=== PATIENT | female | born 1970 | race Caucasian/White ===

== ENCOUNTER 2018-11-07 21:33 | Inpatient (IN) | payer OTHER | END 2018-11-11 16:36 | disposition home or self-care (01) | LOC: JERBED 11-08 01:13 → J5S 11-08 03:16 → JER 21:33 ==

== ENCOUNTER → 2022-09-02 | Day surgery (SDC) | payer OTHER | END | disposition home or self-care (01) | LOC: FMAMMOTONE 09:10 | PROVIDERS: ATTEND Internal Medicine | PROC: 0HBU3ZX Excision of Left Breast, Percutaneous Approach, Diagnostic (ICD-10-PCS; principal; 2022-09-02) | DX: N64.89 Other specified disorders of breast (principal); R92.0 Mammographic microcalcification found on diagnostic imaging of breast | CPT/HCPCS: 19081; 76098-TC-FY; 87899; 88305-TC; A4648 ==

== ENCOUNTER 2023-11-23 09:10 | Inpatient (IN) | payer OTHER ==
[2023-11-23] MEDS: LACTATED RINGERS SOLUTION 1,000 ML IV STA ×2 (09:45→12:19)
[2023-11-23] MEDS: ACETAMINOPHEN 1000 MG/100 ML BAG IVPB ONE (09:45)
[2023-11-23] MEDS ORDERED: morphine SULFATE 4 MG/ML VIAL ONE ×2 (10:07→14:53)
[2023-11-23] MEDS ORDERED: ACETAMINOPHEN INJECTION 100 ML IVPB ONE (10:07)
[2023-11-23 10:12] LABS: BASO % 0.2 % (0-2.0); EOS % 0.1 % (0-4.5); HEMATOCRIT 48.9 % (32.4-45.2); HEMOGLOBIN 16.5 GM/dL (10.7-15.3); LYMPH % 4.5 % (8-40); MCH 29.9 pg (25.7-33.7); MCHC 33.7 g/dl (32.0-36.0); MEAN CELL VOLUME 88.9 fl (80-96); MEAN PLT VOLUME 8.5 fl (7.5-11.1); MONO % 6.5 % (3.8-10.2); NEUT % 88.7 % (42.8-82.8); PLATELET COUNT 270 10^3/uL (134-434); RDW 14.1 % (11.6-15.6); WHITE BLOOD COUNT 17.6 K/mm3 (4.0-10.0)
[2023-11-23 10:31] LABS: POTASSIUM 4.4 mmol/L (3.5-5.1)
[2023-11-23 10:33] LABS: ALBUMIN 3.4 g/dl (3.4-5.0); CALCIUM 8.7 mg/dL (8.5-10.1)
[2023-11-23 10:34] LABS: BLOOD UREA NITROGEN 19.8 mg/dL (7-18)
[2023-11-23 10:36] LABS: CREATININE 0.9 mg/dL (0.55-1.3)
[2023-11-23 10:38] LABS: TOT PROT 6.5 g/dl (6.4-8.2)
[2023-11-23] MEDS: morphine CARPU-JECT 4 MG/1 ML DISP.SYRIN IVPUSH ONE ×2 (10:48→14:58)
[2023-11-23 11:06] LABS: INR 1.13 (0.83-1.09); PROTHROMBIN TIME (PATIENT) 12.7 SEC (9.7-13.0)
[2023-11-23 11:09] LABS: ACTIVATED PTT 46.6 SECONDS (25.2-36.5)
[2023-11-23] MEDS ORDERED: PIPERACILLIN/TAZOB 4.5 GM 4.5 GM/100 ML BAG IVPB ONE (14:51)
[2023-11-23] MEDS: PIPERACILLIN/TAZOB 4.5 GM 4.5 GM in DEXTROSE 5%-WATER 100 ML IVPB ONE (14:58)
[2023-11-23] MEDS: morphine SULFATE 4 MG/ML VIAL IVPUSH PRN (18:27)
[2023-11-23] MEDS: ACETAMINOPHEN 1000 MG/100 ML BAG IVPB PRN (20:07)
[2023-11-23] MEDS: D5-1/2NS+10 MEQ KCL - 10 MEQ/1,000 ML INFUS.BAG IV SCH (21:39)
[2023-11-23] MEDS: PIPERACILLIN/TAZOB 4.5 GM 4.5 GM in DEXTROSE 5%-WATER 100 ML IVPB SCH (21:40)
[2023-11-24] MEDS: LEVOTHYROXINE 112 MCG, LEVOTHYROXINE 25 MCG PO SCH (06:19)
[2023-11-24 08:34] LABS: BASO % 0.3 % (0-2.0); EOS % 0.1 % (0-4.5); HEMOGLOBIN 14.9 GM/dL (10.7-15.3); LYMPH % 4.2 % (8-40); MCH 29.6 pg (25.7-33.7); MCHC 33.1 g/dl (32.0-36.0); MEAN CELL VOLUME 89.6 fl (80-96); MEAN PLT VOLUME 9.2 fl (7.5-11.1); MONO % 6.6 % (3.8-10.2); NEUT % 88.8 % (42.8-82.8); RBC 5.02 M/mm3 (3.60-5.2); RDW 13.9 % (11.6-15.6); WHITE BLOOD COUNT 19.3 K/mm3 (4.0-10.0)
[2023-11-24 08:50] LABS: POTASSIUM 3.9 mmol/L (3.5-5.1)
[2023-11-24 08:59] LABS: PLATELET COUNT 209 10^3/uL (134-434)
[2023-11-24 09:08] LABS: CALCIUM 8.6 mg/dL (8.5-10.1)
[2023-11-24 09:09] LABS: ALBUMIN 3.1 g/dl (3.4-5.0); BLOOD UREA NITROGEN 11.9 mg/dL (7-18)
[2023-11-24 09:12] LABS: CREATININE 0.6 mg/dL (0.55-1.3); PHOSPHOROUS 1.8 mg/dL (2.5-4.9)
[2023-11-24 09:13] LABS: BILIRUBIN,TOTAL 1.6 mg/dL (0.2-1); TOT PROT 5.8 g/dl (6.4-8.2)
[2023-11-24] MEDS: HYDROmorphone HCl 2 MG/ML VIAL IVPB PRN (12:50)
[2023-11-24] MEDS: VANCOMYCIN ORAL SOLUTION 125 MG/2.5 ML PO SCH (17:55)
[2023-11-24 18:08] LABS: EPI CELLS 10 /uL (0-25.1); HYALINE CASTS 0 /uL (0-3.1); URINE APPEARANCE CLEAR; URINE BACTERIA 190 /uL (0-1359); URINE BILIRUBIN NEGATIVE (NEGATIVE); URINE COLOR YELLOW; URINE GLUCOSE (UA) NEGATIVE (NEGATIVE); URINE KETONE NEGATIVE (NEGATIVE); URINE LEUK ESTERASE 2+ (NEGATIVE); URINE NITRITE NEGATIVE (NEGATIVE); URINE PROTEIN 1+ (NEGATIVE); URINE RBC 28 /uL (0-23.9); URINE WBC 236 /uL (0-25.8)
[2023-11-24] MEDS: PIPERACILLIN/TAZOB 4.5 GM 4.5 GM in DEXTROSE 5%-WATER 100 ML IVPB SCH ×2 (18:14→19:08)
[2023-11-24] MEDS: metroNIDAZOLE 250 MG TABLET PO SCH (18:14)
[2023-11-24] MEDS: ALBUTEROL SO4 0.083% IH SOL 2.5 MG/3 ML VIAL.NEB. NEB PRN (22:13)
[2023-11-24] MEDS: BUDESONIDE/FORMETEROL FUMARATE 160/4.5 mcg INHALER IH SCH (22:40)
[2023-11-25] MEDS ORDERED: PATIENT'S OWN MEDICATION (NON-FORMULARY) (Enalapril Maleate [Vasotec] 20 MG Tablet) PO PRN (10:20)
[2023-11-25] MEDS: ENALAPRIL MALEATE 10 MG TABLET PO SCH (11:38)
[2023-11-25 12:13] LABS: BASO % 0.2 % (0-2.0); EOS % 0.2 % (0-4.5); HEMATOCRIT 41.9 % (32.4-45.2); HEMOGLOBIN 14.2 GM/dL (10.7-15.3); LYMPH % 6.4 % (8-40); MCH 29.8 pg (25.7-33.7); MCHC 33.8 g/dl (32.0-36.0); MEAN CELL VOLUME 88.2 fl (80-96); MONO % 7.4 % (3.8-10.2); NEUT % 85.8 % (42.8-82.8); PLATELET COUNT 197 10^3/uL (134-434); RBC 4.76 M/mm3 (3.60-5.2); WHITE BLOOD COUNT 14.4 K/mm3 (4.0-10.0)
[2023-11-25 12:22] LABS: POTASSIUM 3.5 mmol/L (3.5-5.1)
[2023-11-25 12:23] LABS: CALCIUM 8.2 mg/dL (8.5-10.1)
[2023-11-25 12:24] LABS: BLOOD UREA NITROGEN 9.6 mg/dL (7-18)
[2023-11-25 12:27] LABS: CREATININE 0.5 mg/dL (0.55-1.3)
[2023-11-25] MEDS: ACETAMINOPHEN 1000 MG/100 ML BAG IVPB PRN (12:56)
[2023-11-25] MEDS: D5-1/2NS+10 MEQ KCL - 10 MEQ/1,000 ML INFUS.BAG IV SCH (16:39)
[2023-11-25] MEDS: GABAPENTIN 300 MG CAPSULE PO SCH (21:54)
[2023-11-25] MEDS: LIDOCAINE PATCH REMOVAL MC SCH (21:58)
[2023-11-26 08:58] LABS: BASO % 0.3 % (0-2.0); EOS % 0.5 % (0-4.5); HEMOGLOBIN 14.5 GM/dL (10.7-15.3); LYMPH % 9.1 % (8-40); MCH 30.6 pg (25.7-33.7); MCHC 34.5 g/dl (32.0-36.0); MEAN CELL VOLUME 88.5 fl (80-96); MONO % 8.4 % (3.8-10.2); NEUT % 81.7 % (42.8-82.8); PLATELET COUNT 226 10^3/uL (134-434); RBC 4.75 M/mm3 (3.60-5.2); RDW 13.8 % (11.6-15.6); WHITE BLOOD COUNT 10.9 K/mm3 (4.0-10.0)
[2023-11-26 09:11] LABS: POTASSIUM 3.5 mmol/L (3.5-5.1)
[2023-11-26 09:26] LABS: CALCIUM 8.7 mg/dL (8.5-10.1)
[2023-11-26 09:28] LABS: BLOOD UREA NITROGEN 6.7 mg/dL (7-18)
[2023-11-26 09:32] LABS: BILIRUBIN,TOTAL 0.8 mg/dL (0.2-1); CREATININE 0.7 mg/dL (0.55-1.3); TOT PROT 5.7 g/dl (6.4-8.2)
[2023-11-26] MEDS: DULoxetine HCL 30 MG CAPSULE.DR PO SCH (09:35)
[2023-11-26] MEDS: LIDOCAINE 5% TOPICAL PATCH TP SCH (09:36)
[2023-11-27] MEDS ORDERED: INSULIN ASPART SLIDING SCALE (NOVOLOG) 1 VIAL SQ ONE (07:03)
[2023-11-27 08:11] LABS: BASO % 0.3 % (0-2.0); EOS % 1.8 % (0-4.5); HEMATOCRIT 37.1 % (32.4-45.2); HEMOGLOBIN 12.5 GM/dL (10.7-15.3); LYMPH % 17.1 % (8-40); MCH 29.8 pg (25.7-33.7); MCHC 33.6 g/dl (32.0-36.0); MEAN CELL VOLUME 88.9 fl (80-96); MEAN PLT VOLUME 8.8 fl (7.5-11.1); MONO % 9.7 % (3.8-10.2); NEUT % 71.1 % (42.8-82.8); PLATELET COUNT 224 10^3/uL (134-434); RBC 4.17 M/mm3 (3.60-5.2); RDW 14.1 % (11.6-15.6); WHITE BLOOD COUNT 8.3 K/mm3 (4.0-10.0)
[2023-11-27 08:12] LABS: POTASSIUM 3.1 mmol/L (3.5-5.1)
[2023-11-27 08:25] LABS: CALCIUM 8.1 mg/dL (8.5-10.1)
[2023-11-27 08:26] LABS: ALBUMIN 2.7 g/dl (3.4-5.0); BLOOD UREA NITROGEN 7.4 mg/dL (7-18)
[2023-11-27 08:29] LABS: CREATININE 0.6 mg/dL (0.55-1.3)
[2023-11-27 08:30] LABS: BILIRUBIN,TOTAL 0.7 mg/dL (0.2-1); TOT PROT 5.3 g/dl (6.4-8.2)
[2023-11-28 11:03] LABS: BASO % 0.5 % (0-2.0); EOS % 2.4 % (0-4.5); HEMATOCRIT 36.8 % (32.4-45.2); HEMOGLOBIN 12.5 GM/dL (10.7-15.3); LYMPH % 13.1 % (8-40); MCH 30.2 pg (25.7-33.7); MCHC 33.9 g/dl (32.0-36.0); MEAN PLT VOLUME 8.1 fl (7.5-11.1); MONO % 8.1 % (3.8-10.2); NEUT % 75.9 % (42.8-82.8); PLATELET COUNT 244 10^3/uL (134-434); RBC 4.14 M/mm3 (3.60-5.2); RDW 14.2 % (11.6-15.6); WHITE BLOOD COUNT 8.5 K/mm3 (4.0-10.0)
[2023-11-28 11:25] LABS: POTASSIUM 3.1 mmol/L (3.5-5.1)
[2023-11-28 11:28] LABS: BLOOD UREA NITROGEN 3.8 mg/dL (7-18); CALCIUM 8.5 mg/dL (8.5-10.1); MAGNESIUM 1.9 mg/dL (1.8-2.4)
[2023-11-28 11:32] LABS: CREATININE 0.7 mg/dL (0.55-1.3); PHOSPHOROUS 2.6 mg/dL (2.5-4.9)
[2023-11-28] MEDS: NICOTINE 14 MG/24 HOURS TOPICAL PATCH TD SCH (13:32)
[2023-11-28] MEDS: HYDROmorphone HCl 2 MG/ML VIAL IVPB PRN (23:12)
[2023-11-29 07:53] LABS: INR 1.13 (0.83-1.09)
[2023-11-29 07:59] LABS: BASO % 0.4 % (0-2.0); EOS % 2.8 % (0-4.5); HEMATOCRIT 35.1 % (32.4-45.2); LYMPH % 12.6 % (8-40); MCH 30.7 pg (25.7-33.7); MCHC 34.2 g/dl (32.0-36.0); MEAN CELL VOLUME 89.8 fl (80-96); MEAN PLT VOLUME 8.2 fl (7.5-11.1); MONO % 9.2 % (3.8-10.2); PLATELET COUNT 242 10^3/uL (134-434); RBC 3.91 M/mm3 (3.60-5.2); WHITE BLOOD COUNT 8.3 K/mm3 (4.0-10.0)
[2023-11-29 08:06] LABS: CHLORIDE 109 mmol/L (98-107); POTASSIUM 3.5 mmol/L (3.5-5.1); SODIUM 143 mmol/L (136-145)
[2023-11-29 08:17] LABS: GLUCOSE,RANDOM 138 mg/dL (74-106)
[2023-11-29 08:19] LABS: CALCIUM 8.3 mg/dL (8.5-10.1)
[2023-11-29 08:20] LABS: ANION GAP 6 mmol/L (4-13); CO2 28 mmol/L (21-32); CREATININE 0.6 mg/dL (0.55-1.3)
[2023-11-29 08:26] LABS: BLOOD UREA NITROGEN 2.5 mg/dL (7-18)
[2023-11-29] MEDS ORDERED: ALBUTEROL SO4 HFA INHALER IH ONE (10:57)
[2023-11-30] MEDS: PANTOPRAZOLE 40 MG TABLET PO SCH (11:07)
[2023-11-30] MEDS: LACTOBACILLUS ACIDOPHILUS 1 TABLET PO SCH (11:07)
[2023-11-30] MEDS: ASPIRIN COATED 81 MG TABLET.EC PO SCH (11:07)
[2023-11-30] MEDS: POLYETHYLENE GLYCOL (HEALTHYLAX) 3350 17 GM PACKET PO SCH (11:08)
[2023-12-01] MEDS: ALBUTEROL SO4 2.5/IPRATROPIUM 0.5 INH SOL 3 ML VIAL.NEB. NEB SCH (12:40)
[2023-12-01 13:50] VITALS: BMI 28.1
[2023-12-01] MEDS: HYDROmorphone HCl 2 MG/ML VIAL IVPB PRN (23:40)
[2023-12-02 04:40] VITALS: RESP 18
[2023-12-02 23:33] VITALS: BP 151/91; PULSE 96; TEMP 98.3
== END 2023-12-03 03:30 | DRG 246 ==
LOC: JER 09:10 → JERBED 13:50 → J5S 15:25 → J6S 11-24 19:56
PROVIDERS: ADMIT Internal Medicine; ATTEND Internal Medicine
PROC: 0DBM8ZX Excision of Descending Colon, Via Natural or Artificial Opening Endoscopic, Diagnostic (ICD-10-PCS; 2023-11-29)
PROC: 0DBP8ZX Excision of Rectum, Via Natural or Artificial Opening Endoscopic, Diagnostic (ICD-10-PCS; principal; 2023-11-29 12:00)
DX: K55.9 Vascular disorder of intestine, unspecified (principal); R18.8 Other ascites; J44.9 Chronic obstructive pulmonary disease, unspecified; E05.90 Thyrotoxicosis, unspecified without thyrotoxic crisis or storm; R50.9 Fever, unspecified; D25.9 Leiomyoma of uterus, unspecified; E11.51 Type 2 diabetes mellitus with diabetic peripheral angiopathy without gangrene; K62.1 Rectal polyp; F17.210 Nicotine dependence, cigarettes, uncomplicated
CPT/HCPCS: 0241U-QW; 36415; 71045-TC-FY; 74177-TC; 80048; 80053; 81003; 82962; 83605; 83690; 83735; 84100; 85025; 85610; 85730; 86140; 86850; 86900; 86901; 87040; 87045; 87046; 87086; 87205; 87209; 87324; 87449; 87493; 88305-TC; 93005; 93010; 94640; 97116-GP; 97162-GP; 99285-25; J0131; Q9967

== ENCOUNTER 2024-01-14 00:58 | Inpatient (IN) | payer OTHER ==
[2024-01-14] MEDS ORDERED: RAPID SEQUENCE INTUBATION KIT NR ONE (01:06)
[2024-01-14] MEDS ORDERED: ALBUTEROL SO4 2.5/IPRATROPIUM 0.5 INH SOL 3 ML VIAL.NEB. NEB ONE (01:19)
[2024-01-14 01:55] LABS: BASO % 0.5 % (0-2.0); EOS % 4.7 % (0-4.5); HEMATOCRIT 38.5 % (32.4-45.2); HEMOGLOBIN 12.7 GM/dL (10.7-15.3); LYMPH % 17.9 % (8-40); MCH 30.1 pg (25.7-33.7); MEAN CELL VOLUME 91.2 fl (80-96); MEAN PLT VOLUME 8.9 fl (7.5-11.1); MONO % 7.3 % (3.8-10.2); NEUT % 69.6 % (42.8-82.8); PLATELET COUNT 246 10^3/uL (134-434); RBC 4.22 M/mm3 (3.60-5.2)
[2024-01-14] MEDS: ROCURONIUM BROMIDE 50 MG/5 ML VIAL IV ONE (02:09)
[2024-01-14] MEDS: ETOMIDATE 40 MG/20 ML VIAL IVPUSH ONE (02:09)
[2024-01-14] MEDS: PROPOFOL 1,000,000 MCG/100 ML VIAL IVPB SCH (02:33)
[2024-01-14] MEDS ORDERED: methylPREDNISolone NA SUCC 125 MG/2 ML VIAL ONE (02:34)
[2024-01-14] MEDS: methylPREDNISolone NA SUCC 125 MG/2 ML VIAL IVPUSH ONE (02:41)
[2024-01-14 02:44] LABS: PH,URINE 5.5 (5.0-8.0); URINE APPEARANCE CLEAR; URINE BILIRUBIN NEGATIVE (NEGATIVE); URINE COLOR YELLOW; URINE GLUCOSE (UA) NEGATIVE (NEGATIVE); URINE KETONE NEGATIVE (NEGATIVE); URINE LEUK ESTERASE NEGATIVE (NEGATIVE); URINE NITRITE NEGATIVE (NEGATIVE); URINE PROTEIN NEGATIVE (NEGATIVE); URINE UROBILINOGEN 0.2 mg/dL (0.2-1.0)
[2024-01-14 02:48] LABS: VENOUS BASE EXCESS -5.7 mmol/L (-2-2); VENOUS O2 SATURATION 52.1 % (70-80)
[2024-01-14 02:49] LABS: VENOUS PH 7.178 (7.310-7.410)
[2024-01-14] MEDS: MIDAZOLAM IN 0.9 % SOD.CHLORID 100 MG/100 ML PLAST..BAG IVPB SCH (03:12)
[2024-01-14] MEDS: ALBUTEROL SO4 2.5/IPRATROPIUM 0.5 INH SOL 3 ML VIAL.NEB. NEB ONE (03:13)
[2024-01-14] MEDS ORDERED: MAGNESIUM SULFATE IN WATER 2 GM/50 ML IVPB IVPB ONE (03:13)
[2024-01-14 03:29] LABS: CHLORIDE 108 mmol/L (98-107); POTASSIUM 4.8 mmol/L (3.5-5.1); SODIUM 142 mmol/L (136-145)
[2024-01-14 03:31] LABS: ALBUMIN 3.3 g/dl (3.4-5.0); ANION GAP 7 mmol/L (4-13); BLOOD UREA NITROGEN 14.5 mg/dL (7-18); CALCIUM 8.9 mg/dL (8.5-10.1); CO2 26 mmol/L (21-32); GLUCOSE,RANDOM 124 mg/dL (74-106); MAGNESIUM 1.4 mg/dL (1.8-2.4)
[2024-01-14] MEDS: MAGNESIUM SULF 50% (8.12 MEQ/2 ML-1 GM VIAL) IVPB ONE (03:32)
[2024-01-14 03:33] LABS: CREATININE 0.7 mg/dL (0.55-1.3); PHOSPHOROUS 3.5 mg/dL (2.5-4.9); SGOT/AST 28 U/L (15-37); SGPT/ALT 32 U/L (13-61)
[2024-01-14 03:34] LABS: ACTIVATED PTT 42.6 SECONDS (25.2-36.5); INR 0.98 (0.83-1.09); PROTHROMBIN TIME (PATIENT) 11.3 SEC (9.7-13.0)
[2024-01-14 03:36] LABS: BILIRUBIN,TOTAL 0.2 mg/dL (0.2-1); TOT PROT 6.1 g/dl (6.4-8.2)
[2024-01-14 03:37] LABS: ALK PHOS 55 U/L (45-117)
[2024-01-14 03:55] LABS: METHADONE, UR NEGATIVE (NEGATIVE)
[2024-01-14 03:56] LABS: PHENCYCLIDINE,URINE NEGATIVE (NEGATIVE); URINE BARBITURATES NEGATIVE (NEGATIVE)
[2024-01-14 03:57] LABS: COCAINE, UR POSITIVE (NEGATIVE); OPIATES, URI POSITIVE (NEGATIVE); URINE AMPHETAMINES POSITIVE (NEGATIVE); URINE BENZODIAZEPINES POSITIVE (NEGATIVE)
[2024-01-14 04:18] LABS: ARTERIAL BLOOD GAS PO2 171.6 mmHg (80-100); ARTERIAL BLOOD GAS pH 7.306 (7.350-7.450)
[2024-01-14] MEDS: INSULIN ASPART SLIDING SCALE (NOVOLOG) 1 VIAL SQ SCH ×2 (04:39→17:43)
[2024-01-14] MEDS: FENTANYL NS IVPB 500 MCG/100 ML BAG IVPB SCH (05:00)
[2024-01-14] MEDS: CEFTRIAXONE 1 GM in DEXTROSE 5%-WATER - 50 ML IVPB SCH (05:40)
[2024-01-14] MEDS: AZITHROMYCIN IVPB 500 MG/250 ML BAG IVPB SCH (06:05)
[2024-01-14] MEDS ORDERED: methylPREDNISolone NA SUCC 40 MG/1 ML VIAL IVPUSH SCH (09:00)
[2024-01-14] MEDS: methylPREDNISolone NA SUCC 40 MG/1 ML VIAL IVPUSH SCH (09:25)
[2024-01-14] MEDS: PANTOPRAZOLE SODIUM 40 MG VIAL IVPUSH SCH (09:26)
[2024-01-14] MEDS: MUPIROCIN 2% TOPICAL OINTMENT FOR DECOLONIZATION NS SCH (09:27)
[2024-01-14] MEDS: ALBUTEROL SO4 2.5/IPRATROPIUM 0.5 INH SOL 3 ML VIAL.NEB. NEB PRN (20:54)
[2024-01-14] MEDS: ACETAMINOPHEN 1000 MG/100 ML BAG IVPB PRN (22:03)
[2024-01-14] MEDS: CHLORHEXIDINE GLUCONATE 4% CLEANSER FOR DECOLONIZATION TP SCH (22:05)
[2024-01-14 23:00] LABS: ALLENS TEST POSITIVE; ARTERIAL BLOOD GAS BASE EXCESS 1.8 mmol/L (-2-2); ARTERIAL BLOOD GAS PO2 58.3 mmHg (80-100); ARTERIAL BLOOD GAS pH 7.429 (7.350-7.450)
[2024-01-14 23:01] LABS: PT'S TEMP 100.5; VENT MODE A/C; VENT RATE 18
[2024-01-15 06:13] LABS: ARTERIAL BLD GAS O2 SATURATION 91.6 % (95-98); ARTERIAL BLOOD GAS BASE EXCESS 2.3 mmol/L (-2-2); ARTERIAL BLOOD GAS PO2 62.6 mmHg (80-100)
[2024-01-15 06:14] LABS: ALLENS TEST POSITIVE
[2024-01-15 06:15] LABS: VENT MODE A/C
[2024-01-15 06:16] LABS: VENT RATE 18
[2024-01-15] MEDS: MIDAZOLAM IN 0.9 % SOD.CHLORID 100 MG/100 ML PLAST..BAG IVPB SCH (06:45)
[2024-01-15 07:26] LABS: HEMATOCRIT 35.4 % (32.4-45.2); HEMOGLOBIN 11.8 GM/dL (10.7-15.3); MCH 30.4 pg (25.7-33.7); MCHC 33.4 g/dl (32.0-36.0); MEAN CELL VOLUME 90.7 fl (80-96); MEAN PLT VOLUME 9.2 fl (7.5-11.1); PLATELET COUNT 246 10^3/uL (134-434); RDW 14.7 % (11.6-15.6)
[2024-01-15 07:32] LABS: INR 0.95 (0.83-1.09); PROTHROMBIN TIME (PATIENT) 10.8 SEC (9.7-13.0)
[2024-01-15 07:34] LABS: ACTIVATED PTT 32.4 SECONDS (25.2-36.5)
[2024-01-15 07:43] LABS: POTASSIUM 4.9 mmol/L (3.5-5.1)
[2024-01-15 07:51] LABS: CALCIUM 8.5 mg/dL (8.5-10.1)
[2024-01-15 07:52] LABS: ALBUMIN 2.8 g/dl (3.4-5.0); MAGNESIUM 1.8 mg/dL (1.8-2.4); PHOSPHOROUS 4.3 mg/dL (2.5-4.9)
[2024-01-15 07:53] LABS: BILIRUBIN,TOTAL 0.4 mg/dL (0.2-1); TOT PROT 5.3 g/dl (6.4-8.2)
[2024-01-15 07:55] LABS: CREATININE 0.6 mg/dL (0.55-1.3)
[2024-01-15 09:23] LABS: ANISOCYTOSIS 0; MACROCYTOSIS 0
[2024-01-15] MEDS: MAGNESIUM SULFATE IN WATER 2 GM/50 ML IVPB IVPB ONE (09:23)
[2024-01-15] MEDS: ENOXAPARIN NA (PORCINE) 40 MG/0.4 ML DISP.SYRIN SQ SCH (12:55)
[2024-01-16 07:24] LABS: BASO % 0.1 % (0-2.0); HEMATOCRIT 34.6 % (32.4-45.2); HEMOGLOBIN 11.6 GM/dL (10.7-15.3); LYMPH % 7.6 % (8-40); MCH 30.6 pg (25.7-33.7); MCHC 33.6 g/dl (32.0-36.0); MEAN CELL VOLUME 91.3 fl (80-96); MEAN PLT VOLUME 9.1 fl (7.5-11.1); MONO % 2.4 % (3.8-10.2); NEUT % 89.9 % (42.8-82.8); PLATELET COUNT 257 10^3/uL (134-434); RBC 3.79 M/mm3 (3.60-5.2); RDW 14.2 % (11.6-15.6); WHITE BLOOD COUNT 7.4 K/mm3 (4.0-10.0)
[2024-01-16 08:12] LABS: ALBUMIN 2.9 g/dl (3.4-5.0); BLOOD UREA NITROGEN 30.1 mg/dL (7-18); CALCIUM 8.5 mg/dL (8.5-10.1); MAGNESIUM 2.4 mg/dL (1.8-2.4)
[2024-01-16 08:14] LABS: CREATININE 0.6 mg/dL (0.55-1.3)
[2024-01-16 08:15] LABS: PHOSPHOROUS 3.5 mg/dL (2.5-4.9)
[2024-01-16 08:16] LABS: BILIRUBIN,TOTAL 0.4 mg/dL (0.2-1); TOT PROT 5.6 g/dl (6.4-8.2)
[2024-01-16] MEDS: methylPREDNISolone NA SUCC 40 MG/1 ML VIAL IVPUSH SCH (17:18)
[2024-01-16] MEDS: FLUTICASONE/UMECLIDIN/VILANTER(100-62.5-25 TRELEGY ELLIPTA) INAHLER IH SCH (21:54)
[2024-01-16] MEDS: LEVALBUTEROL HCL 0.63 MG/3 ML VIAL.NEB. IH SCH (23:21)
[2024-01-17] MEDS ORDERED: LEVALBUTEROL HCL 0.63 MG/3 ML VIAL.NEB. IH SCH (08:00)
[2024-01-17] MEDS: CEFTRIAXONE 1 GM in DEXTROSE 5%-WATER - 50 ML IVPB SCH (10:04)
[2024-01-17] MEDS: methylPREDNISolone NA SUCC 40 MG/1 ML VIAL IVPUSH SCH (10:07)
[2024-01-17] MEDS: ENOXAPARIN NA (PORCINE) 40 MG/0.4 ML DISP.SYRIN SQ SCH (10:13)
[2024-01-17] MEDS: MULTIVITAMINS (DAILY MVI) TABLET (FP) PO SCH (10:40)
[2024-01-17] MEDS: THIAMINE HCL 200 MG/2 ML VIAL IM SCH (10:48)
[2024-01-17] MEDS: THIAMINE HCL 200 MG/2 ML VIAL IVPB SCH (11:44)
[2024-01-17] MEDS: FLUTICASONE/UMECLIDIN/VILANTER(100-62.5-25 TRELEGY ELLIPTA) INAHLER IH SCH (12:15)
[2024-01-17] MEDS: INSULIN ASPART SLIDING SCALE (NOVOLOG) 1 VIAL SQ SCH (12:42)
[2024-01-18] MEDS: AZITHROMYCIN IVPB 500 MG/250 ML BAG IVPB SCH (05:54)
[2024-01-18] MEDS: LEVALBUTEROL HCL 0.63 MG/3 ML VIAL.NEB. IH SCH (07:49)
[2024-01-18] MEDS: ATORVASTATIN CA 40 MG TABLET (FP) PO SCH (09:29)
[2024-01-18] MEDS: DULoxetine HCL 30 MG CAPSULE.DR PO SCH (09:29)
[2024-01-18] MEDS: ASPIRIN COATED 81 MG TABLET.EC PO SCH (09:41)
[2024-01-18] MEDS: GABAPENTIN 300 MG CAPSULE PO SCH (15:42)
[2024-01-19] MEDS: LEVOTHYROXINE 112 MCG, LEVOTHYROXINE 25 MCG PO SCH (06:18)
[2024-01-19] MEDS ORDERED: methylPREDNISolone NA SUCC 40 MG/1 ML VIAL IVPUSH SCH (10:00)
[2024-01-19] MEDS: predniSONE 20 MG TABLET (UD) PO SCH (11:10)
[2024-01-19] MEDS: AZITHROMYCIN 250 MG TABLET PO SCH (11:10)
[2024-01-19] MEDS: ONDANSETRON 4 MG/2 ML VIAL IVPUSH PRN (17:10)
[2024-01-20] MEDS: PANTOPRAZOLE 40 MG TABLET PO SCH (09:22)
[2024-01-20] MEDS: BACLOFEN 10 MG TABLET (FP) PO SCH (09:53)
[2024-01-20 11:29] LABS: POTASSIUM 4.7 mmol/L (3.5-5.1)
[2024-01-20 11:31] LABS: ALBUMIN 3.4 g/dl (3.4-5.0); BLOOD UREA NITROGEN 26.2 mg/dL (7-18); CALCIUM 9.5 mg/dL (8.5-10.1)
[2024-01-20 11:34] LABS: CREATININE 0.7 mg/dL (0.55-1.3)
[2024-01-20 11:36] LABS: BILIRUBIN,TOTAL 0.7 mg/dL (0.2-1)
[2024-01-22] MEDS: predniSONE 10 MG TABLET (UD) PO SCH (22:09)
[2024-01-24] VITALS: BMI 23.3
[2024-01-25 06:42] VITALS: TEMP 98.2
[2024-01-25] MEDS: ALBUTEROL SO4 2.5/IPRATROPIUM 0.5 INH SOL 3 ML VIAL.NEB. NEB SCH (12:41)
[2024-01-25 15:13] VITALS: BP 117/63; PULSE 97; RESP 16
== END 2024-01-25 14:10 | disposition home or self-care (01) | DRG 812 ==
LOC: JER 00:58 → JERBED 03:06 → JICU 04:20 → J4W 01-17 01:31
PROVIDERS: ADMIT Internal Medicine Pulmonary Disease; ATTEND Family Medicine
PROC: 0BH17EZ Insertion of Endotracheal Airway into Trachea, Via Natural or Artificial Opening (ICD-10-PCS; principal; 2024-01-14)
PROC: 5A1935Z Respiratory Ventilation, Less than 24 Consecutive Hours (ICD-10-PCS; 2024-01-14)
DX: T40.2X1A Poisoning by other opioids, accidental (unintentional), initial encounter (principal); J96.01 Acute respiratory failure with hypoxia; J96.02 Acute respiratory failure with hypercapnia; J69.0 Pneumonitis due to inhalation of food and vomit; J44.1 Chronic obstructive pulmonary disease with (acute) exacerbation; J44.0 Chronic obstructive pulmonary disease with (acute) lower respiratory infection; R26.81 Unsteadiness on feet; G62.9 Polyneuropathy, unspecified; E03.9 Hypothyroidism, unspecified; J45.909 Unspecified asthma, uncomplicated; E11.9 Type 2 diabetes mellitus without complications; T43.621A Poisoning by amphetamines, accidental (unintentional), initial encounter; R41.82 Altered mental status, unspecified; Y92.099 Unspecified place in other non-institutional residence as the place of occurrence of the external cause
CPT/HCPCS: 0241U-QW; 36415; 36600; 70450-TC; 71045-TC-FY; 72125-TC; 80053; 80307; 81003; 82140; 82550; 82553; 82607; 82746; 82803; 82962; 83605; 83735; 83880; 83930; 83935; 84100; 84443; 84484; 85025; 85610; 85730; 86850; 86900; 86901; 87040; 87070; 87205; 87899; 93005; 93010; 94002; 94640; 94761; 97116-GP; 97162-GP; 99291; J0131; J0475

== ENCOUNTER 2024-01-28 17:42 | Inpatient (IN) | payer OTHER ==
[2024-01-28] MEDS ORDERED: HALOPERIDOL LACTATE 5 MG/ML ONE (18:25)
[2024-01-28] MEDS: HALOPERIDOL LACTATE 5 MG/ML IM ONE (18:29)
[2024-01-28] MEDS ORDERED: ALBUTEROL SO4 2.5/IPRATROPIUM 0.5 INH SOL 3 ML VIAL.NEB. NEB ONE (18:31)
[2024-01-28] MEDS: ALBUTEROL SO4 2.5/IPRATROPIUM 0.5 INH SOL 3 ML VIAL.NEB. NEB SCH (18:46)
[2024-01-28] MEDS: SODIUM CHLORIDE 0.9% 500 ML INFUS.BAG IV ONE (18:47)
[2024-01-28] MEDS: LACTATED RINGERS SOLUTION 1000 ML INFUS.BAG IV ONE ×3 (18:48→19:00)
[2024-01-28 18:51] LABS: BASO % 0.4 % (0-2.0); EOS % 0.9 % (0-4.5); HEMATOCRIT 36.9 % (32.4-45.2); LYMPH % 5.9 % (8-40); MCH 29.8 pg (25.7-33.7); MCHC 32.5 g/dl (32.0-36.0); MEAN CELL VOLUME 91.6 fl (80-96); MEAN PLT VOLUME 8.6 fl (7.5-11.1); MONO % 3.1 % (3.8-10.2); NEUT % 89.7 % (42.8-82.8); PLATELET COUNT 208 10^3/uL (134-434); RBC 4.03 M/mm3 (3.60-5.2); WHITE BLOOD COUNT 13.7 K/mm3 (4.0-10.0)
[2024-01-28 18:59] LABS: INR 1.05 (0.83-1.09); PROTHROMBIN TIME (PATIENT) 11.9 SEC (9.7-13.0)
[2024-01-28] MEDS: methylPREDNISolone NA SUCC 125 MG/2 ML VIAL IVPUSH ONE (19:01)
[2024-01-28] MEDS ORDERED: methylPREDNISolone NA SUCC 125 MG/2 ML VIAL ONE (19:01)
[2024-01-28 19:15] LABS: CHLORIDE 105 mmol/L (98-107); SODIUM 137 mmol/L (136-145)
[2024-01-28 19:17] LABS: ALBUMIN 2.9 g/dl (3.4-5.0); ANION GAP 9 mmol/L (4-13); BLOOD UREA NITROGEN 33.1 mg/dL (7-18); CALCIUM 8.2 mg/dL (8.5-10.1); CO2 23 mmol/L (21-32)
[2024-01-28 19:18] LABS: GLUCOSE,RANDOM 117 mg/dL (74-106)
[2024-01-28 19:20] LABS: SGOT/AST 43 U/L (15-37); SGPT/ALT 47 U/L (13-61)
[2024-01-28 19:21] LABS: CREATININE 1.4 mg/dL (0.55-1.3)
[2024-01-28 19:22] LABS: BILIRUBIN,TOTAL 0.9 mg/dL (0.2-1); TOT PROT 5.6 g/dl (6.4-8.2)
[2024-01-28 19:23] LABS: ALK PHOS 45 U/L (45-117)
[2024-01-28] MEDS ORDERED: DEXAMETHASONE SOD PHOSPHATE 10 MG/1 ML VIAL ONE (19:33)
[2024-01-28 19:44] LABS: VENOUS BASE EXCESS -19.5 mmol/L (-2-2); VENOUS O2 SATURATION 76.2 % (70-80); VENOUS PCO2 19.9 mmHg (38-52)
[2024-01-28] MEDS: DEXAMETHASONE SOD PHOSPHATE 10 MG/1 ML VIAL IVPUSH ONE (19:46)
[2024-01-28 19:47] LABS: VENOUS PH 7.173 (7.310-7.410)
[2024-01-28 19:50] LABS: MAGNESIUM 1.9 mg/dL (1.8-2.4)
[2024-01-28] MEDS: REMDESIVIR 200 MG in SODIUM CHLORIDE 250 ML IVPB ONE ×2 (20:02→22:44)
[2024-01-28] MEDS ORDERED: CEFEPIME 2 GM/100 ML BAG IVPB ONE (20:04)
[2024-01-28] MEDS: CEFEPIME HCL 2 GM VIAL (RESTRICTED TO ID) IVPB ONE (20:05)
[2024-01-28] MEDS: VANCOMYCIN PREMIX 1.5 GM 1,500 MG/300 ML BAG IVPB ONE (20:50)
[2024-01-28] MEDS: VANCOMYCIN HCL 1,500 MG in DEXTROSE 5%-WATER - 500 ML IVPB ONE (20:53)
[2024-01-28 21:05] LABS: ARTERIAL BLD GAS O2 SATURATION 88.2 % (95-98); ARTERIAL BLOOD GAS BASE EXCESS -3.9 mmol/L (-2-2); ARTERIAL BLOOD GAS PO2 57.5 mmHg (80-100); ARTERIAL BLOOD GAS pH 7.334 (7.350-7.450)
[2024-01-28 21:09] LABS: ALLENS TEST POSITIVE
[2024-01-28] MEDS: DEXMEDETOMIDINE PREMIX 400 MCG/100 ML BAG IVPB SCH (23:00)
[2024-01-28] MEDS ORDERED: DEXMEDETOMIDINE PREMIX 400 MCG/100 ML BAG IVPB ONE (23:01)
[2024-01-28] MEDS: MUPIROCIN 2% TOPICAL OINTMENT FOR DECOLONIZATION NS SCH (23:29)
[2024-01-28 23:46] LABS: EPI CELLS 5 /uL (0-25.1); HYALINE CASTS 3 /uL (0-3.1); PH,URINE 5.5 (5.0-8.0); URINE APPEARANCE CLEAR; URINE BACTERIA 2 /uL (0-1359); URINE BILIRUBIN NEGATIVE (NEGATIVE); URINE COLOR YELLOW; URINE GLUCOSE (UA) NEGATIVE (NEGATIVE); URINE KETONE NEGATIVE (NEGATIVE); URINE LEUK ESTERASE NEGATIVE (NEGATIVE); URINE NITRITE NEGATIVE (NEGATIVE); URINE PROTEIN 1+ (NEGATIVE); URINE RBC 27 /uL (0-23.9); URINE UROBILINOGEN 0.2 mg/dL (0.2-1.0); URINE WBC 10 /uL (0-25.8)
[2024-01-28 23:51] LABS: URINE AMPHETAMINES NEGATIVE (NEGATIVE)
[2024-01-28 23:52] LABS: COCAINE, UR NEGATIVE (NEGATIVE); METHADONE, UR NEGATIVE (NEGATIVE); PHENCYCLIDINE,URINE NEGATIVE (NEGATIVE); URINE BARBITURATES NEGATIVE (NEGATIVE); URINE BENZODIAZEPINES NEGATIVE (NEGATIVE)
[2024-01-28 23:53] LABS: OPIATES, URI POSITIVE (NEGATIVE)
[2024-01-29] MEDS: ENOXAPARIN NA (PORCINE) 40 MG/0.4 ML DISP.SYRIN SQ SCH (00:03)
[2024-01-29] MEDS: PIPERACILLIN/TAZOB 3.375 GM 3.375 GM in DEXTROSE 5%-WATER - 50 ML IVPB SCH ×3 (00:03→19:30)
[2024-01-29] MEDS ORDERED: ALBUTEROL SO4 2.5/IPRATROPIUM 0.5 INH SOL 3 ML VIAL.NEB. NEB SCH (00:15)
[2024-01-29] MEDS: INSULIN ASPART SLIDING SCALE (NOVOLOG) 1 VIAL SQ SCH (00:48)
[2024-01-29] MEDS: LACTATED RINGERS SOLUTION 1000 ML INFUS.BAG IV ONE (00:48)
[2024-01-29 01:19] LABS: POTASSIUM 3.9 mmol/L (3.5-5.1)
[2024-01-29 01:21] LABS: ALBUMIN 2.4 g/dl (3.4-5.0); CALCIUM 7.8 mg/dL (8.5-10.1)
[2024-01-29 01:22] LABS: BLOOD UREA NITROGEN 25.5 mg/dL (7-18); MAGNESIUM 1.6 mg/dL (1.8-2.4)
[2024-01-29 01:25] LABS: CREATININE 0.9 mg/dL (0.55-1.3); PHOSPHOROUS 3.2 mg/dL (2.5-4.9)
[2024-01-29 01:26] LABS: BILIRUBIN,TOTAL 0.6 mg/dL (0.2-1); TOT PROT 4.9 g/dl (6.4-8.2)
[2024-01-29 07:47] LABS: BASO % 0.1 % (0-2.0); HEMATOCRIT 33.7 % (32.4-45.2); HEMOGLOBIN 11.3 GM/dL (10.7-15.3); LYMPH % 4.4 % (8-40); MCH 30.3 pg (25.7-33.7); MCHC 33.5 g/dl (32.0-36.0); MEAN CELL VOLUME 90.5 fl (80-96); MEAN PLT VOLUME 8.7 fl (7.5-11.1); MONO % 1.8 % (3.8-10.2); NEUT % 93.7 % (42.8-82.8); PLATELET COUNT 178 10^3/uL (134-434); RBC 3.72 M/mm3 (3.60-5.2); RDW 14.5 % (11.6-15.6); WHITE BLOOD COUNT 10.5 K/mm3 (4.0-10.0)
[2024-01-29] MEDS: ALBUTEROL SO4 2.5/IPRATROPIUM 0.5 INH SOL 3 ML VIAL.NEB. NEB SCH (07:58)
[2024-01-29 08:04] LABS: INR 1.09 (0.83-1.09); PROTHROMBIN TIME (PATIENT) 12.5 SEC (9.7-13.0)
[2024-01-29 08:06] LABS: ACTIVATED PTT 34.5 SECONDS (25.2-36.5)
[2024-01-29 08:32] LABS: ALBUMIN 2.4 g/dl (3.4-5.0); BLOOD UREA NITROGEN 22.8 mg/dL (7-18); CALCIUM 8.2 mg/dL (8.5-10.1)
[2024-01-29 08:34] LABS: ANISOCYTOSIS 1+; MACROCYTOSIS 0
[2024-01-29 08:36] LABS: CREATININE 0.8 mg/dL (0.55-1.3)
[2024-01-29 08:37] LABS: BILIRUBIN,TOTAL 0.7 mg/dL (0.2-1); TOT PROT 5.1 g/dl (6.4-8.2)
[2024-01-29] MEDS: DEXAMETHASONE SOD PHOSPHATE 10 MG/1 ML VIAL IVPUSH SCH (09:53)
[2024-01-29] MEDS: MAGNESIUM SULFATE IN WATER 2 GM/50 ML IVPB IVPB ONE (09:53)
[2024-01-29] MEDS: PANTOPRAZOLE SODIUM 40 MG VIAL IVPUSH SCH (09:53)
[2024-01-29] MEDS: REMDESIVIR 100 MG in SODIUM CHLORIDE 250 ML IVPB SCH (17:50)
[2024-01-29] MEDS: CHLORHEXIDINE GLUCONATE 4% CLEANSER FOR DECOLONIZATION TP SCH (21:56)
[2024-01-30 07:18] LABS: HEMATOCRIT 33.4 % (32.4-45.2); HEMOGLOBIN 11.4 GM/dL (10.7-15.3); MCH 30.2 pg (25.7-33.7); MCHC 34.2 g/dl (32.0-36.0); MEAN CELL VOLUME 88.3 fl (80-96); MEAN PLT VOLUME 8.9 fl (7.5-11.1); PLATELET COUNT 200 10^3/uL (134-434); RBC 3.79 M/mm3 (3.60-5.2); RDW 14.6 % (11.6-15.6); WHITE BLOOD COUNT 11.4 K/mm3 (4.0-10.0)
[2024-01-30 07:42] LABS: POTASSIUM 4.2 mmol/L (3.5-5.1)
[2024-01-30 07:45] LABS: ALBUMIN 2.6 g/dl (3.4-5.0)
[2024-01-30 07:46] LABS: BLOOD UREA NITROGEN 37.7 mg/dL (7-18); CALCIUM 8.8 mg/dL (8.5-10.1)
[2024-01-30 07:47] LABS: MAGNESIUM 2.3 mg/dL (1.8-2.4)
[2024-01-30 07:49] LABS: CREATININE 0.9 mg/dL (0.55-1.3); PHOSPHOROUS 2.5 mg/dL (2.5-4.9)
[2024-01-30 07:51] LABS: BILIRUBIN,TOTAL 0.7 mg/dL (0.2-1); TOT PROT 5.5 g/dl (6.4-8.2)
[2024-01-30 09:09] LABS: ANISOCYTOSIS 0; HELMET CELLS 0; HOWELL-JOLLY BODIES 0; MACROCYTOSIS 0; OVALOCYTE 0; ROULEAU 0; SICKELED CELLS 0; TARGET CELLS 0; TEAR DROP CELLS 0; TOXIC GRANULATION 0
[2024-01-30] MEDS ORDERED: INSULIN ASPART SLIDING SCALE (NOVOLOG) 1 VIAL SQ ONE ×2 (10:19→17:51)
[2024-01-30] MEDS: SODIUM CHLORIDE 1,000 ML IV SCH (10:26)
[2024-01-30 14:08] VITALS: BMI 23.7
[2024-01-30] MEDS: guaiFENesin 200 MG/10 ML 10 ML UNIT-DOSE CUPS PO PRN (17:40)
[2024-01-31] MEDS: BACLOFEN 10 MG TABLET (FP) PO SCH (00:05)
[2024-01-31] MEDS: GABAPENTIN 300 MG CAPSULE PO SCH (00:06)
[2024-01-31] MEDS: MELATONIN 5 MG TABLETS PO ONE (01:54)
[2024-01-31 07:42] LABS: HEMATOCRIT 33.3 % (32.4-45.2); MCH 29.8 pg (25.7-33.7); MCHC 32.9 g/dl (32.0-36.0); MEAN CELL VOLUME 90.4 fl (80-96); MEAN PLT VOLUME 9.3 fl (7.5-11.1); PLATELET COUNT 207 10^3/uL (134-434); RBC 3.68 M/mm3 (3.60-5.2); RDW 15.1 % (11.6-15.6); WHITE BLOOD COUNT 11.4 K/mm3 (4.0-10.0)
[2024-01-31 08:03] LABS: POTASSIUM 3.6 mmol/L (3.5-5.1)
[2024-01-31 08:05] LABS: CALCIUM 8.7 mg/dL (8.5-10.1)
[2024-01-31 08:06] LABS: ALBUMIN 2.6 g/dl (3.4-5.0); BLOOD UREA NITROGEN 35.3 mg/dL (7-18); MAGNESIUM 2.1 mg/dL (1.8-2.4)
[2024-01-31 08:09] LABS: CREATININE 0.7 mg/dL (0.55-1.3); PHOSPHOROUS 1.9 mg/dL (2.5-4.9)
[2024-01-31 08:11] LABS: BILIRUBIN,TOTAL 0.8 mg/dL (0.2-1); TOT PROT 5.3 g/dl (6.4-8.2)
[2024-01-31] MEDS: ALBUTEROL SO4 2.5/IPRATROPIUM 0.5 INH SOL 3 ML VIAL.NEB. NEB SCH (16:10)
[2024-01-31] MEDS: SODIUM CHLORIDE 1,000 ML IV SCH (16:49)
[2024-01-31] MEDS: traMADol HCL 50 MG TABLET PO PRN (17:32)
[2024-01-31] MEDS: PIPERACILLIN/TAZOB 3.375 GM 3.375 GM in DEXTROSE 5%-WATER - 50 ML IVPB SCH (17:34)
[2024-01-31] MEDS: REMDESIVIR 100 MG in SODIUM CHLORIDE 250 ML IVPB SCH (17:43)
[2024-01-31] MEDS: INSULIN ASPART SLIDING SCALE (NOVOLOG) 1 VIAL SQ SCH (17:44)
[2024-01-31] MEDS: POTASSIUM CHLORIDE ORAL LIQUID 20 MEQ/15 ML PO ONE (17:45)
[2024-01-31] MEDS: LIDOCAINE PATCH REMOVAL MC SCH (21:54)
[2024-01-31] MEDS ORDERED: MUPIROCIN 2% TOPICAL OINTMENT FOR DECOLONIZATION NS SCH (22:00)
[2024-01-31] MEDS ORDERED: CHLORHEXIDINE GLUCONATE 4% CLEANSER FOR DECOLONIZATION TP SCH (22:00)
[2024-02-01 00:59] VITALS: RESP 18
[2024-02-01] MEDS: LEVOTHYROXINE 25 MCG, LEVOTHYROXINE 112 MCG PO SCH (06:11)
[2024-02-01 09:40] LABS: POTASSIUM 3.7 mmol/L (3.5-5.1)
[2024-02-01 09:51] LABS: BLOOD UREA NITROGEN 25.3 mg/dL (7-18); MAGNESIUM 1.7 mg/dL (1.8-2.4)
[2024-02-01 09:54] LABS: CALCIUM 8.1 mg/dL (8.5-10.1); CREATININE 0.5 mg/dL (0.55-1.3)
[2024-02-01] MEDS: DEXAMETHASONE SOD PHOSPHATE 10 MG/1 ML VIAL IVPUSH SCH (11:34)
[2024-02-01] MEDS: PANTOPRAZOLE SODIUM 40 MG VIAL IVPUSH SCH (11:34)
[2024-02-01] MEDS: DULoxetine HCL 30 MG CAPSULE.DR PO SCH (11:37)
[2024-02-01] MEDS: ASPIRIN COATED 81 MG TABLET.EC PO SCH (11:38)
[2024-02-01] MEDS: ENOXAPARIN NA (PORCINE) 40 MG/0.4 ML DISP.SYRIN SQ SCH (11:39)
[2024-02-01] MEDS: INSULIN (LEVEMIR) 100 UNITS/ML UNITS SQ SCH (11:40)
[2024-02-01] MEDS: LIDOCAINE 5% TOPICAL PATCH TP SCH (11:43)
[2024-02-01] MEDS: REMDESIVIR 100 MG in SODIUM CHLORIDE 250 ML IVPB SCH (17:45)
[2024-02-01] MEDS: ATORVASTATIN CA 40 MG TABLET (FP) PO SCH (22:29)
[2024-02-02 06:52] VITALS: BP 136/81; PULSE 74; TEMP 98.2
[2024-02-02] MEDS: PANTOPRAZOLE 40 MG TABLET PO SCH (10:40)
== END 2024-02-02 15:37 | disposition home health service (06) | DRG 137 ==
LOC: JER 17:42 → JICU 22:04 → J4S 01-30 21:58
PROVIDERS: ADMIT Internal Medicine Pulmonary Disease; ATTEND Family Medicine
PROC: XW033E5 Introduction of Remdesivir Anti-infective into Peripheral Vein, Percutaneous Approach, New Technology Group 5 (ICD-10-PCS; principal; 2024-01-28)
DX: U07.1 COVID-19 (principal); J96.01 Acute respiratory failure with hypoxia; J12.82 Pneumonia due to coronavirus disease 2019; J96.02 Acute respiratory failure with hypercapnia; F11.23 Opioid dependence with withdrawal; J44.1 Chronic obstructive pulmonary disease with (acute) exacerbation; E11.9 Type 2 diabetes mellitus without complications; E03.9 Hypothyroidism, unspecified
CPT/HCPCS: 0241U-QW; 36415; 36600; 70450-TC; 71045-TC-FY; 80048; 80053; 80307; 81003; 82308; 82550; 82553; 82803; 82962; 83605; 83735; 84100; 84443; 84484; 85025; 85027; 85610; 85730; 87040; 87086; 93005; 93010; 94640; 97116-GP; 97161-GP; 99291; J0248; J0475; J1100